=== PATIENT | male | born 1995 | race Caucasian/White ===

== ENCOUNTER 2017-01-12 17:04 | Outpatient (CLI) | payer OTHER | END 2017-01-12 17:05 | disposition critical access hospital (66) | LOC: EMS 17:04 | PROVIDERS: ATTEND Surgery | DX: R55 Syncope and collapse (principal); R11.2 Nausea with vomiting, unspecified; R51 Headache | CPT/HCPCS: A0425; A0427 ==

== ENCOUNTER 2017-01-12 17:24 | Emergency (ER) | payer MEDICAID, OTHER ==
--- NOTE | 2017-01-12 18:06 | ED Physician Documentation ---
PD HPI SYNCOPE - Stated complaint Stated Complaint: SYNCOPE - Chief complaint Chief Complaint: Neuro - History obtained from History obtained from: Patient - History of Present Illness Witnessed: Witnessed (by his friend) Timing - onset: Today Duration: Seconds (about 45 seconds - he was sitting with friend playing video game and felt lightheaded then fainted. He was out less than a minute then awoke confused, nauseated and vomited. He was improving by EMS arrival with just feeling tired.) Preceding symptoms: Nausea / vomiting (nausea without vomiting, but he did vomit afterward.), Light headed Associated symptoms: Palpitations (he did not note heart rate abnormal, but EMS got first HR at 170 and elevated BP.), Nausea / vomiting. No: Seizure, Incontinant of urine, Headache, Chest pain, Abdominal pain Contributing factors: Decreased PO intake (he hadn't had lunch but did have breakfast earlier). No: Recent med change, Noxious stimulae (he had had some marijuana earlier in the afternoon, but not unusual for him, so not new.) Injury occurred: No: Fell, Head injury, Bit tongue Similar symptoms before: Has not had sx before Recently seen: Not recently seen Review of Systems Constitutional: denies: Fever, Chills Nose: denies: Rhinorrhea / runny nose, Congestion Throat: denies: Sore throat Cardiac: denies: Chest pain / pressure, Pedal edema, Calf pain Respiratory: denies: Dyspnea, Cough, Wheezing GI: reports: Nausea, Vomiting (once). denies: Abdominal Pain, Diarrhea Skin: denies: Rash, Lesions Musculoskeletal: denies: Neck pain, Back pain Neurologic: denies: Generalized weakness, Focal weakness, Numbness, Altered mental status, Headache, Head injury Endocrine: denies: Weight loss Immunocompromised: denies: Immunocompromised PD PAST MEDICAL HISTORY - Past Medical History Past Medical History: No Cardiovascular: None Neuro: None - Past Surgical History Past Surgical History: Yes - Present Medications Home Medications: Ambulatory Orders Medication Instructions Recorded Confirmed No Known Home Medications [No 01/12/17 01/12/17 Known Home Medications] - Allergies Allergies/Adverse Reactions: Allergies Allergy/AdvReac Type Severity Reaction Status Date / Time No Known Drug Allergies Allergy Verified 06/07/14 17:36 - Social History Does the pt smoke?: No Smoking Status: Never smoker Does the pt drink ETOH?: No Does the pt have substance abuse?: Yes Substance Use and Type: Marijuana - Family History Family history: reports: Other (no FH of seizures nor heart rhythm problems. 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, No motor deficit, No sensory deficit, Normal speech - Psych Psych: Normal mood, Normal affect Results - Vitals Vitals: Oxygen O2 Source Room air - Labs Labs: Laboratory Tests 01/12/17 01/12/17 01/12/17 18:25 18:54 18:54 WBC 11.9 H RBC 5.17 Hgb 14.0 Hct 41.1 L MCV 79.4 L MCH 27.2 MCHC 34.2 RDW 13.6 Plt Count 251 MPV 7.4 Neut # 9.7 H Lymph # 1.4 L [place] # 0.7 Eos # 0.1 Baso # 0.1 Absolute Nucleated RBC 0.00 Nucleated RBCs 0.0 Sodium 138 Potassium 3.9 Chloride 103 Carbon Dioxide 27 Anion Gap 8.0 BUN 13 Creatinine 1.0 Estimated GFR (MDRD) 96 Glucose 116 H Calcium 8.8 Total Bilirubin 0.7 AST 14 ALT 13 Alkaline Phosphatase 65 Total Protein 7.0 Albumin 4.4 Globulin 2.6 Albumin/Globulin Ratio 1.7 Lipase 17 L Urine Color YELLOW Urine Clarity CLEAR Urine pH 6.5 Ur Specific [place] 1.020 Urine Protein NEGATIVE Urine Glucose (UA) NEGATIVE Urine Ketones NEGATIVE Urine Occult Blood NEGATIVE Urine Nitrite NEGATIVE Urine Bilirubin NEGATIVE Urine Urobilinogen 0.2 (NORMAL) Ur Leukocyte Esterase NEGATIVE Ur Microscopic Review NOT INDICATED Urine Culture Comments NOT INDICATED - Rads (name of study) head CT Radiology: Prelim report reviewed (normal), EMP read contemporaneously PD MEDICAL DECISION MAKING - ED course Complexity details: reviewed results, considered differential (does not sound like seizure. Consider vasovagal as was nauseated and vomited right after. EMS noted HR 170 on their first arrival but it slowed on its own, so not sounding SVT. Unsure of cause. ), d/w patient Departure - Departure Disposition: 01 Home, Self Care Clinical Impression: Syncope Qualifiers: Syncope type: unspecified Qualified Code(s): R55 - Syncope and collapse Condition: Stable Record reviewed to determine appropriate education?: Yes Instructions: ED Fainting Unkn Cause Comments: Drink lots of fluids. Rest for this evening. Tylenol or ibuprofen if needed for pains. Activity as able based on comfort or any other symptoms such as lightheadedness. Is not clear the cause of this at this point. Recheck if recurrent symptoms or episodes. Discharge Date/Time: 01/12/17 20:45
[2017-01-12] MEDS ORDERED: SODIUM CHLORIDE 0.9% 1,000 ML IV ONE (18:40)
[2017-01-12] MEDS ORDERED: ACETAMINOPHEN 325 MG TABLET PO STA (18:40)
[2017-01-12 18:47] LABS: BILIRUBIN,URINE NEGATIVE (NEGATIVE); PH,URINE 6.5 PH (5.0-7.5)
[2017-01-12 18:54] LABS: UA CHARGE (STRIP ONLY) YES; UR CULTURE IF IND NOT INDICATED
[2017-01-12] MEDS ORDERED: ACETAMINOPHEN 325 MG TABLET PO ONE (18:58)
[2017-01-12 19:07] LABS: BASOPHILS # (AUTO) 0.1 10^3/uL (0.0-0.1); BASOPHILS % (AUTO) 0.5 %; EOSINOPHILS # (AUTO) 0.1 10^3/uL (0.0-0.7); EOSINOPHILS % (AUTO) 0.5 %; HCT - HEMATOCRIT 41.1 % (42.0-52.0); LYMPHOCYTES # (AUTO) 1.4 10^3/uL (1.5-3.5); LYMPHOCYTES % (AUTO) 11.4 %; MEAN CORPUSCULAR HEMOGLOBIN 27.2 pg (27.0-31.0); MEAN CORPUSCULAR HGB CONC 34.2 g/dL (32.0-36.0); MEAN CORPUSCULAR VOLUME 79.4 fL (80.0-94.0); MEAN PLATELET VOLUME 7.4 fL (7.4-11.4); MONOCYTES # (AUTO) 0.7 10^3/uL (0.0-1.0); MONOCYTES % (AUTO) 6.2 %; NEUTROPHILS # (AUTO) 9.7 10^3/uL (1.5-6.6); NEUTROPHILS % (AUTO) 81.4 %; RED BLOOD COUNT 5.17 10^6/uL (4.70-6.10); RED CELL DISTRIBUTION WIDTH 13.6 % (12.0-15.0); UNCORRECTED WHITE BLOOD COUNT 11.9 x10^3/uL; WHITE BLOOD COUNT 11.9 x10^3/uL (4.8-10.8)
[2017-01-12 19:12] LABS: ALBUMIN/GLOBULIN RATIO 1.7 (1.0-2.2); BILIRUBIN,TOTAL 0.7 mg/dL (0.2-1.0); CALCIUM 8.8 mg/dL (8.5-10.3); POTASSIUM 3.9 mmol/L (3.5-5.0)
--- NOTE | 2017-01-12 19:46 | CT Preliminary Report ---
Exam: CT Head W/O IMPRESSION: No acute or focal intracranial abnormality seen. [facility] SITE ID: [id number]
--- NOTE | 2017-01-12 19:49 | CT Report ---
EXAM: CT HEAD EXAM DATE: 01/12/2017 07:22 PM. CLINICAL HISTORY: Lightheaded and fainted with vomiting. Syncope with headache. COMPARISON: None. TECHNIQUE: Multiaxial CT images were obtained from the foramen magnum to the vertex. IV contrast: Non e. Reformats: Coronal. In accordance with CT protocol optimization, one or more of the following dose reduction techniques w ere utilized for this exam: automated exposure control, adjustment of mA and/or KV based on patient s ize, or use of iterative reconstructive technique. FINDINGS: Parenchyma: No intraparenchymal hemorrhage. No evidence of mass, midline shift, or CT findings of inf arction. Driscoll-white differentiation is distinct. Extraaxial Spaces: Normal for age. No subdural or epidural collections identified. Ventricles: Normal in size and position. Sinuses: Mild right sphenoid sinus mucosal thickening. Bones: No evidence of fracture or calvarial defect. IMPRESSION: No acute or focal intracranial abnormality seen. [facility] Referring Provider Line: [phone] SITE ID: [id number]
[2017-01-12 20:04] VITALS: BP 115/60
== END 2017-01-12 20:45 | disposition home or self-care (01) ==
LOC: EDUNIT# → ED 17:24
DX: R55 Syncope and collapse (principal); R00.0 Tachycardia, unspecified
CPT/HCPCS: 36415; 70450; 80053; 81003; 83690; 85025; 93005; 99284; A9270; 81001; 87086